=== PATIENT | female | born 1970 | race Two or more races ===

== ENCOUNTER 2018-02-06 13:30 | Emergency (ER) | payer MEDICAID ==
[~2018-02-06] VITALS: Ht 175.3 cm; Wt 82.0 kg
[2018-02-06] VITALS (10 sets, daily range): BP systolic 163–182; BP diastolic 81–95
[2018-02-06] MEDS ORDERED: LABETALOL 5MG/ML, 20ML IVPush ONE (14:30)
[2018-02-06] MEDS ORDERED: SODIUM CHLORIDE FLUSH 10ML SYR IVF ONE (14:30)
[2018-02-06 14:33] LABS: MEAN CORPUSCULAR HEMOGLOBIN 15.5 pg (27.0-34.8); MEAN CORPUSCULAR VOLUME 53.8 fL (80-100); MEAN PLATELET VOLUME 8.7 fL (7.4-10.4); PLATELET COUNT 285 x10^3/uL (130-400); RED BLOOD COUNT 3.94 x10^6/uL (3.82-5.3); RED CELL DISTRIBUTION WIDTH 22.3 % (9.6-15.2)
[2018-02-06 14:34] LABS: MD YES
[2018-02-06 14:35] LABS: HEMOGRAM NOTE RECHECKED; MEAN CORPUSCULAR HGB CONC 28.7 g/dL (32.4-35.8)
[2018-02-06 14:38] LABS: ALANINE AMINOTRANSFERASE 14 U/L (12-78); ALBUMIN 3.1 g/dL (3.4-5.0); ANION GAP 8 mmol/L (5-15); CALCIUM 8.2 mg/dL (8.5-10.1); CHLORIDE 109 mmol/L (98-107); CREATININE 0.88 mg/dL (0.55-1.02)
[2018-02-06 14:40] LABS: ALKALINE PHOSPHATASE 64 U/L (45-117); BILIRUBIN,TOTAL 0.3 mg/dL (0.2-1.0)
[2018-02-06 14:52] LABS: INTERNATIONAL NORMALIZED RATIO 1.04 (0.93-1.1); PROTHROMBIN TIME 10.8 Seconds (9.6-11.5)
[2018-02-06 15:26] LABS: BANDS%(MANUAL) 19 % (0-7); EOS#(MANUAL) 0.06 x10^3/uL (0.0-0.4); EOS% (MANUAL) 1 % (1-7); LYMPH#(MANUAL) 0.41 x10^3/uL (1-3.4); LYMPHS% (MANUAL) 7 % (22-44); MONOS#(MANUAL) 0.23 x10^3/uL (0.3-2.7); MONOS% (MANUAL) 4 % (2-9); SEGS% (MANUAL) 69 % (42-75)
[2018-02-06 15:27] LABS: ANISOCYTOSIS 1+; HYPOCHROMIA 3+; MICROCYTOSIS 3+
[2018-02-06 15:28] LABS: <PLATELET ESTIMATE> ADEQUATE; <PLT MORPHOLOGY> NORMAL PLT MORPH
[2018-02-06 15:40] LABS: FOLATE LEVEL 18.7 ng/mL (3.1-17.5)
== END 2018-02-06 18:23 | disposition home or self-care (01) ==
LOC: ED 18:01
DX: D50.0 Iron deficiency anemia secondary to blood loss (chronic) (principal); I10 Essential (primary) hypertension; E11.9 Type 2 diabetes mellitus without complications; F17.210 Nicotine dependence, cigarettes, uncomplicated
CPT/HCPCS: 36415; 36430; 70486; 80053; 82607; 82728; 82746; 83540; 83550; 85025; 85610; 85730; 86850; 86900; 86923; 99285; P9016

== ENCOUNTER 2018-03-04 10:25 | Emergency (ER) | payer MEDICAID ==
[~2018-03-04] VITALS: Ht 175.3 cm; Wt 83.0 kg
[2018-03-04] MEDS ORDERED: FERR-46 PO (10:58)
[2018-03-04] MEDS ORDERED: LISI2.5T PO (10:59)
[2018-03-04 11:36] LABS: ALBUMIN 3.2 g/dL (3.4-5.0); ANION GAP 6 mmol/L (5-15); CALCIUM 8.5 mg/dL (8.5-10.1); CHLORIDE 108 mmol/L (98-107); CREATININE 0.76 mg/dL (0.55-1.02)
[2018-03-04 11:37] LABS: MEAN CORPUSCULAR HEMOGLOBIN 20.8 pg (27.0-34.8); MEAN CORPUSCULAR HGB CONC 30.9 g/dL (32.4-35.8); MEAN CORPUSCULAR VOLUME 67.3 fL (80-100); PLATELET COUNT 274 x10^3/uL (130-400); RED BLOOD COUNT 4.95 x10^6/uL (3.82-5.3); RED CELL DISTRIBUTION WIDTH 37.5 % (9.6-15.2)
[2018-03-04 11:41] LABS: INTERNATIONAL NORMALIZED RATIO 0.99 (0.93-1.1); PROTHROMBIN TIME 10.2 Seconds (9.6-11.5)
[2018-03-04 11:46] LABS: BASOPHILS % (AUTO) 0 % (0-1); EOSINOPHILS # (AUTO) 0.21 x10^3/uL (0-0.4); EOSINOPHILS % (AUTO) 3 % (1-7); LYMPHOCYTES # (AUTO) 0.86 x10^3/uL (1-3.4); LYMPHOCYTES % (AUTO) 11 % (22-44); MD MORPH REVIEW ONLY; MONOCYTES # (AUTO) 0.41 x10^3/uL (0.2-0.8); MONOCYTES % (AUTO) 5 % (2-9); NEUTROPHILS % (AUTO) 81 % (42-75)
[2018-03-04 11:48] LABS: ANISOCYTOSIS 2+; HYPOCHROMIA 2+; MICROCYTOSIS 2+
[2018-03-04 11:49] LABS: OVALOCYTES 1+
[2018-03-04 11:52] LABS: <PLATELET ESTIMATE> ADEQUATE; <PLT MORPHOLOGY> NORMAL PLT MORPH
[2018-03-04 12:47] VITALS: BP 157/84
== END 2018-03-04 12:50 | disposition home or self-care (01) ==
LOC: ED 12:16
DX: E11.9 Type 2 diabetes mellitus without complications (principal); I10 Essential (primary) hypertension; D50.0 Iron deficiency anemia secondary to blood loss (chronic); R22.0 Localized swelling, mass and lump, head; F17.200 Nicotine dependence, unspecified, uncomplicated; R79.1 Abnormal coagulation profile
CPT/HCPCS: 36415; 80048; 82040; 85025; 85610; 85730; 99284

== ENCOUNTER 2019-01-13 01:34 | Emergency (ER) | payer MEDICAID ==
[~2019-01-13] VITALS: Ht 175.3 cm; Wt 78.7 kg
[2019-01-13] VITALS (7 sets, daily range): BP systolic 142–161; BP diastolic 75–96
[~2019-01-13 01:34] MED LIST: FERR-46 PO; LISI2.5T PO
--- NOTE | 2019-01-13 03:12 | NUR ---
INITIAL CONTACT WITH PT. ASSESSMENT DONE.
[2019-01-13] MEDS ORDERED: SODIUM CHLORIDE FLUSH 10ML SYR IVF ONE (03:30)
[2019-01-13 03:47] LABS: MEAN CORPUSCULAR HEMOGLOBIN 18.3 pg (27.0-34.8); MEAN CORPUSCULAR HGB CONC 30.1 g/dL (32.4-35.8); MEAN PLATELET VOLUME 8.9 fL (7.4-10.4); PLATELET COUNT 338 x10^3/uL (130-400); RED BLOOD COUNT 4.12 x10^6/uL (3.82-5.3); RED CELL DISTRIBUTION WIDTH 19.1 % (9.6-15.2)
[2019-01-13 03:56] LABS: ANISOCYTOSIS 2+; BASOPHILS # (AUTO) 0.05 x10^3/uL (0-0.1); BASOPHILS % (AUTO) 1 % (0-1); EOSINOPHILS # (AUTO) 0.05 x10^3/uL (0-0.4); EOSINOPHILS % (AUTO) 1 % (1-7); HYPOCHROMIA 2+; LYMPHOCYTES % (AUTO) 14 % (22-44); MD MORPH REVIEW ONLY; MICROCYTOSIS 2+; MONOCYTES % (AUTO) 7 % (2-9); NEUTROPHILS # (AUTO) 5.38 x10^3/uL (1.8-6.8); NEUTROPHILS % (AUTO) 77 % (42-75); OVALOCYTES 1+
[2019-01-13 03:57] LABS: TEAR DROPS 1+
[2019-01-13 03:58] LABS: <PLATELET ESTIMATE> ADEQUATE; <PLT MORPHOLOGY> NORMAL PLT MORPH; SCHISTOCYTES 1+
--- NOTE | 2019-01-13 04:51 | NUR ---
TRANSFUSION CONSENT SIGNED, S/S OF TRANSFUSION REACTION EXPLAINED TO PT, UNIT OF PRBC'S UP AND VERIFIED BY 2 RN'S.
--- NOTE | 2019-01-13 05:49 | NUR ---
1ST UNIT OF PRBC'S COMPLETE, 2ND UNIT ORDERED. PT TOLERATED WELL WITH NO TRANSFUSION REACTION.
--- NOTE | 2019-01-13 06:08 | NUR ---
2ND UNIT OF PRBC'S INFUSING.
--- NOTE | 2019-01-13 07:08 | NUR ---
2ND UNIT OF PRBC'S DONE, NO TRANSFUSION REACTION. PT TO BE DC'D HOME.
== END 2019-01-13 07:17 | disposition home or self-care (01) ==
LOC: ED 02:55
DX: D50.0 Iron deficiency anemia secondary to blood loss (chronic) (principal); M27.8 Other specified diseases of jaws; I10 Essential (primary) hypertension; E11.9 Type 2 diabetes mellitus without complications; F17.200 Nicotine dependence, unspecified, uncomplicated; Z72.9 Problem related to lifestyle, unspecified; Z98.890 Other specified postprocedural states
CPT/HCPCS: 36415; 36430; 85025; 86850; 86900; 86923; 99291; P9016